=== PATIENT | female | born 2000 | race Caucasian/White ===

== ENCOUNTER 2021-05-28 01:02 | Emergency (ER) | payer MEDICAID ==
[~2021-05-28] VITALS: Ht 160 cm; Wt 87.0 kg
[2021-05-28] MEDS ORDERED: LIDOCAINE HCL/EPINEPHRINE 1%-EPI 1:100,000 20 ML VIAL INFIL ONE (03:15)
[2021-05-28 03:40] LABS: BASOPHILS % 0.6 % (0.0-2.0); EOSINOPHILS % 0.7 % (0.0-5.0); HEMATOCRIT. 38.6 % (36.0-48.0); HEMOGLOBIN. 12.6 g/dL (12.0-16.0); LYMPHOCYTES % 21.3 % (20.0-50.0); MEAN CORPUSCULAR VOLUME 85.9 fL (81.0-99.0); MEAN PLATELET VOLUME 8.4 fl (7.4-10.4); MONOCYTES % 5.5 % (2.0-8.0); NEUTROPHILS % 71.9 % (40.0-76.0); PLATELET 364 x1000/uL (130-400); RED BLOOD CELL COUNT 4.49 mill/uL (4.2-5.4)
[2021-05-28 03:47] LABS: CHLORIDE 108 mEq/L (98-107)
[2021-05-28 03:51] LABS: ETHANOL BLOOD < 10 mg/dL
[2021-05-28 04:30] LABS: CLARITY URINE CLEAR (CLEAR); COLOR URINE YELLOW (YELLOW); KETONES URINE NEGATIVE (NEGATIVE); LEUKOCYTE ESTERASE URINE NEGATIVE (NEGATIVE); NITRITE URINE NEGATIVE (NEGATIVE); OCCULT BLOOD URINE 1+ (NEGATIVE); PH URINE 5.5 (4.5-8.0); PROTEIN URINE NEGATIVE (NEGATIVE); UROBILINOGEN URINE 0.2 E.U./dL (0.2-1.0)
[2021-05-28 04:48] LABS: CANNABINOID URINE SCREEN NEGATIVE (NEGATIVE)
[2021-05-28 04:49] LABS: *AMPHETAMINES SCREEN URINE NEGATIVE (NEGATIVE); *BARBITURATES SCREEN URINE NEGATIVE (NEGATIVE); *BENZODIAZEPINES SCREEN URINE NEGATIVE (NEGATIVE); *COCAINE SCREEN URINE NEGATIVE (NEGATIVE); METHADONE URINE SCREEN NEGATIVE (NEGATIVE); OPIATES URINE SCREEN NEGATIVE (NEGATIVE); PHENCYCLIDINE URINE SCREEN NEGATIVE (NEGATIVE)
[2021-05-28] MEDS ORDERED: SERT25TA MT (11:36)
[2021-05-28 12:45] VITALS: BP 128/78
== END 2021-05-28 12:45 | disposition home or self-care (01) ==
LOC: ER 01:02
DX: S61.512A Laceration without foreign body of left wrist, initial encounter (principal); F32.A Depression, unspecified; Z20.822 Contact with and (suspected) exposure to COVID-19; X78.8XXA Intentional self-harm by other sharp object, initial encounter; Y93.89 Activity, other specified; Y92.018 Other place in single-family (private) house as the place of occurrence of the external cause
CPT/HCPCS: 36415; 80053; 80305; 80307; 80320; 80329; 81003; 81025; 85025; 99285; C9803; J3490; J7042; U0003; U0005; G0480

== ENCOUNTER 2021-06-11 15:11 | Emergency (ER) | payer MEDICAID ==
[~2021-06-11] VITALS: Ht 162.6 cm; Wt 85.0 kg
[~2021-06-11 15:11] MED LIST: SERT25TA MT
[2021-06-11 15:41] VITALS: BP 125/71
== END 2021-06-11 16:30 | disposition home or self-care (01) ==
LOC: ER 15:11
DX: Z48.02 Encounter for removal of sutures (principal)
CPT/HCPCS: 99281; Z7610